=== PATIENT | female | born 1975 | race Caucasian/White ===

== ENCOUNTER 2016-06-14 19:59 | Emergency (ER) | payer OTHER ==
[2016-06-14 20:22] VITALS: BP 138/103
--- NOTE | 2016-06-14 21:10 | UC ---
Allergic Reaction HPI - HPI Summary HPI Summary: The patient comes in today for: 1. Rash and "gum swelling" focal area of the left inside cheek/ buccal mucosa: Onset: Last night (9 PM). Palliative/provocative: She took 2 Benadryl and she thinks that it helped. Intially she took her first dose at 9 AM today and 2 PM. Quality: Red, itching Region: Upper extremities, chest, face, and abdomen. Severity: 3/10 Time: Enlarging. Associated symptoms: Fever: None known. Event: She had some shrimp at 5:45 PM yesterday. Then around 7 PM the rash started on her hands and face. At 2 PM she noticed the swelling of the inside of the lip. Shortness of breath: None. Wheezing: None. Treatment: None except the Benadryl. * - History of Current Complaint Chief Complaint: UCRash Stated Complaint: ALLERGIC REACTION RASH SWOLLEN MOUTH Time Seen by Provider: 06/14/16 21:03 Hx Obtained From: Patient Hx Last Menstrual Period: 1 WEEK AGO ?: No - Allergies/Home Medications Allergies/Adverse Reactions: Allergies Allergy/AdvReac Type Severity Reaction Status Date / Time No Known Allergies Allergy Verified 06/14/16 20:22 Home Medications: Home Medications Diphenhydramine HCl [Benadryl Allergy] 25 mg PO PRN 06/14/16 [History] Norethin Acet & Estrad-Fe [Junel Fe 06/13 1-20 mg-Mcg] 1 tab PO DAILY 06/14/16 [ History Confirmed 06/14/16] PMH/Surg Hx/FS Hx/Imm Hx Previously Healthy: No - ADHD on Rx for 20 years. PCOS/BCP Endocrine History Of: Denies: Diabetes, Thyroid Disease, Hyperthyroidism, Hypothyroidism, Dyslipidemia Cardiovascular History Of: Denies: Cardiac Disorders, Hypertension, Pacemaker/ICD, Myocardial Infarction , Congestive Heart Failure, Atrial Fibrillation, Deep Vein Thrombosis, Bleeding Disorders Respiratory History Of: Reports: Asthma - No Rx. Denies: COPD, Bronchitis, Pneumonia, Pulmonary Embolism GI/ History Of: Denies: Gastroesophageal Reflux, Ulcer, Gastrointestinal Bleed, Gall Bladder Disease, Kidney Stones, Diverticulitis, Renal Disease, Urosepsis Neurological History Of: Denies: TIA, CVA, Dementia, Seizures, Migraine Psychological History Of: Reports: Anxiety - Lorazepam for both PTSD and anxiety --as needed., Post Traumatic Stress Disorder Denies: Depression, Bipolar Disorder, Schizophrenia Cancer History Of: Denies: Lung Cancer, Colorectal Cancer, Breast Cancer, Prostate Cancer, Cervical Cancer Other History Of: Negative For: HIV, Hepatitis B, Hepatitis C, Anticoagulant Therapy - Surgical History Surgical History: Yes Surgery Procedure, Year, and Place: MYOSECTOMY 02/2016 - Family History Known Family History: Negative: Cardiac Disease, Hypertension - Social History Occupation: Employed Full-time Alcohol Use: None Substance Use Type: None Smoking Status (MU): Never Smoked Tobacco Review of Systems Constitutional: Negative Skin: Rash Eyes: Negative ENT: Negative Respiratory: Negative Cardiovascular: Negative Gastrointestinal: Negative Genitourinary: Negative All Other Systems Reviewed And Are Negative: Yes Physical Exam Triage Information Reviewed: Yes Appearance: Well-Appearing, No Pain Distress, Well-Nourished Vital Signs: Initial Vital Signs Temp 100 F 06/14/16 20:17 Pulse 72 06/14/16 20:17 Resp 16 06/14/16 20:17 BP 138/103 06/14/16 20:17 Pulse Ox 100 06/14/16 20:17 Vital Signs Reviewed: Yes Eyes: Positive: Conjunctiva Clear. Negative: Discharge ENT: Positive: Hearing grossly normal. Negative: Pharyngeal erythema, Nasal congestion, Nasal drainage, TM bulging, TM dull, TM red, Tonsillar swelling, Tonsillar exudate Dental: Positive: Other: - No oral edema.. Negative: Gross Decay/Caries @, Dental Fracture @ Neck: Positive: Supple, Nontender, No Lymphadenopathy. Negative: Nuchal Rigidity Respiratory: Positive: Chest non-tender, Lungs clear, No respiratory distress, No accessory muscle use Cardiovascular: Positive: RRR, No Murmur, Pulses Normal Abdomen Description: Positive: Nontender, No Organomegaly, Soft. Negative: Distended, Guarding Musculoskeletal: Positive: Strength Intact, ROM Intact, No Edema Neurological: Positive: Alert, Muscle Tone Normal Psychological: Positive: Age Appropriate Behavior, Consolable Skin: Positive: rashes - Lace-like erythematous, papular lesions of face, distal upper extremities, and abdomen. Allergic Reaction Course/Dx - Differential Dx/Diagnosis Provider Diagnoses: allergic reaction. Discharge - Discharge Plan Condition: Stable Disposition: HOME Patient Education Materials: Food Allergy (ED), Urticaria (ED) Referrals: Joslyn Rincon MD [Primary Care Provider] - 1 Week (Please see your primary care provider early next week to see how well you are doing. If you get worse, please be seen sooner by us or ER.) Additional Instructions: Take the [id number], non-sedating antihistamines during the day (Zyrtec, Ewa, loratidine)--avoiding the decongestants. Take Hydroxyzine as needed at bedtime for sleeping or during the day when you can nap if you need to. ' Take famotidine daily while having problems with your rash. Take the prednisone as directed for the following two mornings.
[2016-06-14] MEDS ORDERED: Famotidine TAB* 20 MG PO ONE (21:25)
[2016-06-14] MEDS ORDERED: predniSONE TAB* 20 MG PO ONE (21:25)
[2016-06-14] MEDS ORDERED: hydrOXYzine HCL TAB* 25 MG PO ONE (21:26)
[2016-06-14] MEDS ORDERED: hydrOXYzine HCL TAB* 25 MG ONE (21:45)
== END 2016-06-14 21:56 | disposition home or self-care (01) ==
LOC: UCEAST 19:59
DX: T78.40XA Allergy, unspecified, initial encounter (principal); R21 Rash and other nonspecific skin eruption; K06.1 Gingival enlargement; X58.XXXA Exposure to other specified factors, initial encounter; F41.9 Anxiety disorder, unspecified; F43.10 Post-traumatic stress disorder, unspecified; Z87.09 Personal history of other diseases of the respiratory system
CPT/HCPCS: 99213; A9270-GY; G0463; J7512